=== PATIENT | male | born 1990 | race Caucasian/White ===

== ENCOUNTER 2019-12-08 11:34 | Emergency (ER) | payer MEDICAID ==
[~2019-12-08] VITALS: Ht 167.6 cm; Wt 61.8 kg
[2019-12-08 11:56] VITALS: BP 127/79
[2019-12-08 12:26] LABS: BASOPHILS % (AUTO) 0.3 % (0-1); EOSINOPHILS # (AUTO) 0.1 X10'3 (0-0.9); HEMATOCRIT 46.5 % (42.0-52.0); HEMOGLOBIN 16.1 g/dl (14.0-17.9); LYMPHOCYTES # (AUTO) 1.8 X10'3 (1.1-4.8); MEAN CORPUSCULAR HGB CONC 34.6 g/dL (33.0-36.5); MEAN CORPUSCULAR VOLUME 89.5 FL (78-98); MEAN PLATELET VOLUME 8.6 FL (7.4-10.4); MONOCYTES # (AUTO) 0.6 X10'3 (0-0.9); MONOCYTES % (AUTO) 6.7 % (2-12); PLATELET COUNT 321 X10'3 (140-440); RED BLOOD COUNT 5.19 X10'6 (4.70-6.10); RED CELL DISTRIBUTION WIDTH 13.1 % (11.5-14.5); WHITE BLOOD COUNT 8.4 X10'3 (4.5-11.0)
[2019-12-08 12:41] LABS: ALANINE AMINOTRANSFERASE 18 U/L (12-78); ALBUMIN 4.1 G/DL (3.4-5.0); ALBUMIN/GLOBULIN RATIO 1.1 (1.1-1.5); ALKALINE PHOSPHATASE 61 IU/L (46-116); ANION GAP 7 (8-16); ASPARTATE AMINO TRANSFERASE 12 U/L (10-37); BILIRUBIN,TOTAL 0.5 MG/DL (0.1-1.0); BLOOD UREA NITROGEN 5 MG/DL (7-18); BUN/CREATININE RATIO 5.1 (5.4-32.0); CALCIUM 9.7 MG/DL (8.5-10.1); CHLORIDE 107 MMOL/L (99-107); CREATININE 0.99 MG/DL (0.60-1.10); GLUCOSE 120 MG/DL (70-104); POTASSIUM 3.3 MMOL/L (3.5-5.1); SODIUM 144 MMOL/L (135-145); TOTAL CARBON DIOXIDE 30.1 MMOL/L (24-32); eGFR 89 ML/MIN
--- NOTE | 2019-12-08 14:19 | NUR ---
Not in lobby
--- NOTE | 2019-12-08 14:28 | NUR ---
Third call, not in lobby. Discussed with Dr Pro. Attempted to call patient, phone not in service.
== END 2019-12-08 15:06 | disposition left against medical advice (07) ==
LOC: ER 11:35
DX: R07.89 Other chest pain (principal); Z53.21 Procedure and treatment not carried out due to patient leaving prior to being seen by health care provider
CPT/HCPCS: 36415; 71045; 80053; 84484; 85025; 93005

== ENCOUNTER 2020-11-26 19:31 | Emergency (ER) | payer MEDICAID ==
[~2020-11-26] VITALS: Ht 167.6 cm; Wt 61.8 kg
[2020-11-26] MEDS ORDERED: ketorolac trometh inj. 60 MG/2 ML VIAL IM ONE (20:15)
[2020-11-26 20:36] LABS: BASOPHILS # (AUTO) 0.1 X10'3 (0-0.2); EOSINOPHILS # (AUTO) 0.3 X10'3 (0-0.9); EOSINOPHILS % (AUTO) 3.4 % (0-6); HEMATOCRIT 44.7 % (42.0-52.0); HEMOGLOBIN 15.3 g/dl (14.0-17.9); LYMPHOCYTES # (AUTO) 3.5 X10'3 (1.1-4.8); LYMPHOCYTES % (AUTO) 41.4 % (21-51); MEAN CORPUSCULAR HEMOGLOBIN 31.2 PG (27.0-31.0); MEAN CORPUSCULAR HGB CONC 34.3 g/dL (33.0-36.5); MEAN CORPUSCULAR VOLUME 90.7 FL (78-98); MEAN PLATELET VOLUME 8.6 FL (7.4-10.4); MONOCYTES # (AUTO) 0.9 X10'3 (0-0.9); MONOCYTES % (AUTO) 10.1 % (2-12); NEUTROPHILS # (AUTO) 3.8 X10'3 (1.8-7.7); NEUTROPHILS % (AUTO) 44.1 % (42-75); PLATELET COUNT 233 X10'3 (140-440); RED BLOOD COUNT 4.92 X10'6 (4.70-6.10); RED CELL DISTRIBUTION WIDTH 12.8 % (11.5-14.5); WHITE BLOOD COUNT 8.6 X10'3 (4.5-11.0)
[2020-11-26 20:49] LABS: CLARITY,URINE CLEAR (Clear); COLOR,URINE YELLOW (Yellow); GLUCOSE, URINE NEGATIVE (Neg); KETONES,URINE NEGATIVE (Neg); LEUKOCYTE ESTERASE ,URINE NEGATIVE (Neg); NITRITES, URINE NEGATIVE (Neg); OCCULT BLOOD,URINE NEGATIVE (Neg); PROTEIN,URINE NEGATIVE (Neg); UROBILINOGEN,URINE 0.2 E.U/dL (0.2-1.0)
[2020-11-26 20:53] LABS: ALANINE AMINOTRANSFERASE 28 U/L (12-78); ALBUMIN 4.1 G/DL (3.4-5.0); ALBUMIN/GLOBULIN RATIO 1.1 (1.1-1.5); ALKALINE PHOSPHATASE 66 IU/L (46-116); ANION GAP 8 (8-16); ASPARTATE AMINO TRANSFERASE 15 U/L (10-37); BILIRUBIN,TOTAL 0.3 MG/DL (0.1-1.0); BLOOD UREA NITROGEN 11 MG/DL (7-18); BUN/CREATININE RATIO 12.1 (5.4-32.0); CALCIUM 8.9 MG/DL (8.5-10.1); CHLORIDE 104 MMOL/L (99-107); CREATININE 0.91 MG/DL (0.60-1.10); GLUCOSE 88 MG/DL (70-104); LIPASE 102 U/L (73-393); POTASSIUM 3.8 MMOL/L (3.5-5.1); SODIUM 140 MMOL/L (135-145); TOTAL CARBON DIOXIDE 28.5 MMOL/L (24-32); TOTAL PROTEIN 7.7 G/DL (6.4-8.2); eGFR > 90 ML/MIN
[2020-11-26 20:54] LABS: UA COLLECTION TYPE CLN CATCH MIDSTREAM
[2020-11-26 21:05] LABS: URINE AMPHETAMINE SCREEN NEGATIVE (Neg); URINE BARBITUATE SCREEN NEGATIVE (Neg); URINE BENZODIAZEPINES SCREEN NEGATIVE (Neg); URINE CANNABINOID SCREEN POSITIVE (Neg); URINE COCAINE SCREEN NEGATIVE (Neg); URINE METHADONE SCREEN NEGATIVE (Neg); URINE OPIATE SCREEN NEGATIVE (Neg); URINE PHENCYCLIDINE SCREEN NEGATIVE (Neg)
[2020-11-26] MEDS ORDERED: NAPR-56 PO (21:06)
[2020-11-26] MEDS ORDERED: ORPH100T2 PO (21:06)
[2020-11-26 21:16] VITALS: BP 112/61
== END 2020-11-26 21:17 | disposition home or self-care (01) ==
LOC: ER 19:32
DX: M79.18 Myalgia, other site (principal); R25.2 Cramp and spasm; F12.90 Cannabis use, unspecified, uncomplicated; F17.200 Nicotine dependence, unspecified, uncomplicated; Z88.2 Allergy status to sulfonamides; Z79.899 Other long term (current) drug therapy
CPT/HCPCS: 36415; 80053; 80305; 81003; 83690; 85025; 93005; 96372; 99284; J1885

== ENCOUNTER 2020-11-27 18:19 | Emergency (ER) | payer MEDICAID ==
[~2020-11-27] VITALS: Ht 167.6 cm; Wt 61.4 kg
[~2020-11-27 18:19] MED LIST: NAPR-56 PO; ORPH100T2 PO
[2020-11-27] MEDS ORDERED: PENICILLIN G BENZATHINE 2,400,000 UNIT/4 ML SYRINGE IM ONE (19:20)
--- NOTE | 2020-11-27 19:53 | NUR ---
STABLE VS. PT GIVEN [place] SHOT.
[2020-11-27 19:54] VITALS: BP 129/84
== END 2020-11-27 19:55 | disposition home or self-care (01) ==
LOC: ER 18:20
DX: N50.89 Other specified disorders of the male genital organs (principal); Z20.2 Contact with and (suspected) exposure to infections with a predominantly sexual mode of transmission; Z86.19 Personal history of other infectious and parasitic diseases; F12.90 Cannabis use, unspecified, uncomplicated; Z88.2 Allergy status to sulfonamides; Z79.899 Other long term (current) drug therapy
CPT/HCPCS: 36415; 86592; 96372; 99283; J0561

== ENCOUNTER 2020-12-04 09:39 | Emergency (ER) | payer MEDICAID ==
[~2020-12-04] VITALS: Ht 167.6 cm; Wt 61.4 kg
[2020-12-04 09:43] VITALS: BP 141/93
--- NOTE | 2020-12-04 10:20 | NUR ---
[facility] SYMPTOMS FRIDAY HERE: RECEIVED PCN SHOT FOR SYPHYLIS FRIDAY BACK HERE FOR "ALLERGIC REACTION" = MILD ITCHING AND RASH NOW PRESSURE IN HEAD, RIGHT NECK STIFF DISCUSSED ORDER FOR MRI THAT HAS BEEN DENIED, ORDERED BY MARY ANN DEMARCO AT [facility] FOR PELVIS PAIN AND ENLARGED LYMPH NODES WHILE DISCUSSING WHAT BROUGHT THE PATIENT HERE, I TOLD HIM THAT I WAS GOING TO RETURN WITH A GOWN AND BLANKET SO THE DOCTOR CAN FULLY EXAMINED HIM AND SAID "iM JUST GONNA FUCKIN LEAVE, JUST LIKE BEFORE"
--- NOTE | 2020-12-04 10:24 | NUR ---
PATIENT WANTING TO LEAVE NOW, CONTACTED JOY PABON
--- NOTE | 2020-12-04 10:25 | NUR ---
JOY PABON AT BEDSIDE
--- NOTE | 2020-12-04 10:30 | NUR ---
WHEN JOY PABON WAS DISCUSSING MULTIPLE TREATMENT OPTIONS, PATIENT SAID: "DONT CALL ME YOUNG AND HEALTHY. IM JUST LEAVING. IM NOT HEALTHY." PATIENT DID NOT APPEAR TO HAVE ANY FOCAL NEURO DEFICITS, RR EVEN AND UNLABORED, SKIN WARM PINK AND DRY, AND AMULATED WNL.
--- NOTE | 2020-12-04 10:39 | NUR ---
PATIENT SIGNED AMA FORM
== END 2020-12-04 10:39 | disposition left against medical advice (07) ==
LOC: ER 09:40
DX: M43.6 Torticollis (principal); R51.9 Headache, unspecified; R10.2 Pelvic and perineal pain; F12.90 Cannabis use, unspecified, uncomplicated; Z88.2 Allergy status to sulfonamides; Z79.899 Other long term (current) drug therapy
CPT/HCPCS: 99281

== ENCOUNTER 2021-04-09 09:42 | Emergency (ER) | payer MEDICAID ==
[~2021-04-09 09:42] MED LIST changes: -NAPR-56 PO
== END 2021-04-09 10:15 | disposition left against medical advice (07) ==
LOC: ER 09:42
DX: H57.10 Ocular pain, unspecified eye (principal); Z53.21 Procedure and treatment not carried out due to patient leaving prior to being seen by health care provider
CPT/HCPCS: 99283

== ENCOUNTER 2021-05-14 18:39 | Emergency (ER) | payer MEDICAID | END 2021-05-14 19:44 | disposition left against medical advice (07) | LOC: ER 18:41 | DX: Z53.21 Procedure and treatment not carried out due to patient leaving prior to being seen by health care provider (principal) ==

== ENCOUNTER 2021-09-18 11:41 | Emergency (ER) | payer MEDICAID ==
[~2021-09-18] VITALS: Ht 167.6 cm; Wt 61.4 kg
[2021-09-18 12:08] VITALS: BP 135/77
--- NOTE | 2021-09-18 15:37 | NUR ---
knee brace placed and cut to R eye cleaned
== END 2021-09-18 16:11 | disposition home or self-care (01) ==
LOC: ER 11:41
DX: M23.91 Unspecified internal derangement of right knee (principal); M25.561 Pain in right knee; F17.200 Nicotine dependence, unspecified, uncomplicated; F12.90 Cannabis use, unspecified, uncomplicated; Z88.2 Allergy status to sulfonamides; Z79.899 Other long term (current) drug therapy
CPT/HCPCS: 29505; 73564; 99284

== ENCOUNTER 2021-09-23 13:59 | Emergency (ER) | payer MEDICAID ==
[~2021-09-23] VITALS: Ht 167.6 cm; Wt 65.9 kg
[2021-09-23 14:24] VITALS: BP 136/80
[2021-09-23] MEDS ORDERED: apixaban 5mg tablet PO SCH (17:55)
[2021-09-23] MEDS ORDERED: APIX5TAB3 PO (17:56)
== END 2021-09-23 18:36 | disposition home or self-care (01) ==
LOC: ER 13:59
DX: I82.402 Acute embolism and thrombosis of unspecified deep veins of left lower extremity (principal)
CPT/HCPCS: 93926; 93971; 99284; 99285

== ENCOUNTER 2021-09-24 23:55 | Emergency (ER) | payer MEDICAID ==
[~2021-09-24] VITALS: Ht 167.6 cm; Wt 65.9 kg
[~2021-09-24 23:55] MED LIST changes: +APIX5TAB3 PO
[2021-09-25] MEDS ORDERED: HYDROcodone/acetaminophen 5mg/325mg tablet PO ONE (01:00)
[2021-09-25 01:21] LABS: BASOPHILS # (AUTO) 0.1 X10'3 (0-0.2); BASOPHILS % (AUTO) 1.1 % (0-1); EOSINOPHILS # (AUTO) 0.2 X10'3 (0-0.9); EOSINOPHILS % (AUTO) 3.7 % (0-6); HEMATOCRIT 39.9 % (42.0-52.0); HEMOGLOBIN 13.9 g/dl (14.0-17.9); LYMPHOCYTES # (AUTO) 3.4 X10'3 (1.1-4.8); LYMPHOCYTES % (AUTO) 51.1 % (21-51); MEAN CORPUSCULAR HEMOGLOBIN 31.4 PG (27.0-31.0); MEAN CORPUSCULAR HGB CONC 34.9 g/dL (33.0-36.5); MEAN PLATELET VOLUME 8.5 FL (7.4-10.4); MONOCYTES # (AUTO) 0.8 X10'3 (0-0.9); MONOCYTES % (AUTO) 11.3 % (2-12); NEUTROPHILS # (AUTO) 2.2 X10'3 (1.8-7.7); NEUTROPHILS % (AUTO) 32.8 % (42-75); PLATELET COUNT 257 X10'3 (140-440); RED BLOOD COUNT 4.43 X10'6 (4.70-6.10); RED CELL DISTRIBUTION WIDTH 13.1 % (11.5-14.5); WHITE BLOOD COUNT 6.7 X10'3 (4.5-11.0)
[2021-09-25 01:35] LABS: ALANINE AMINOTRANSFERASE 22 U/L (12-78); ALBUMIN 3.5 G/DL (3.4-5.0); ALBUMIN/GLOBULIN RATIO 1.1 (1.1-1.5); ALKALINE PHOSPHATASE 52 IU/L (46-116); ANION GAP 7 (8-16); ASPARTATE AMINO TRANSFERASE 12 U/L (10-37); BILIRUBIN,TOTAL 0.4 MG/DL (0.1-1.0); BLOOD UREA NITROGEN 11 MG/DL (7-18); CALCIUM 8.5 MG/DL (8.5-10.1); CHLORIDE 105 MMOL/L (99-107); CREATININE 0.92 MG/DL (0.60-1.10); GLUCOSE 116 MG/DL (70-104); POTASSIUM 3.3 MMOL/L (3.5-5.1); SODIUM 143 MMOL/L (135-145); TOTAL CARBON DIOXIDE 30.7 MMOL/L (24-32); TOTAL PROTEIN 6.8 G/DL (6.4-8.2); eGFR > 90 ML/MIN
[2021-09-25 01:39] LABS: ETHANOL < 0.010 GM/DL (0.0-0.010)
[2021-09-25 02:32] LABS: URINE AMPHETAMINE SCREEN POSITIVE (Neg); URINE BARBITUATE SCREEN NEGATIVE (Neg); URINE BENZODIAZEPINES SCREEN NEGATIVE (Neg); URINE CANNABINOID SCREEN POSITIVE (Neg); URINE COCAINE SCREEN NEGATIVE (Neg); URINE METHADONE SCREEN NEGATIVE (Neg); URINE OPIATE SCREEN POSITIVE (Neg); URINE PHENCYCLIDINE SCREEN NEGATIVE (Neg)
[2021-09-25 02:47] LABS: TOTAL CELLS COUNTED 100
[2021-09-25 02:48] LABS: PLATELET ESTIMATE NORMAL
[2021-09-25 02:50] LABS: LARGE PLATELETS FEW; TEAR DROP CELLS FEW
[2021-09-25 03:19] VITALS: BP 115/72
== END 2021-09-25 03:21 | disposition home or self-care (01) ==
LOC: ER 23:56
DX: R07.89 Other chest pain (principal); R11.0 Nausea; I82.401 Acute embolism and thrombosis of unspecified deep veins of right lower extremity; S89.91XD Unspecified injury of right lower leg, subsequent encounter; Z79.899 Other long term (current) drug therapy; Z87.74 Personal history of (corrected) congenital malformations of heart and circulatory system; Z88.2 Allergy status to sulfonamides; X58.XXXD Exposure to other specified factors, subsequent encounter
CPT/HCPCS: 36415; 80053; 80305; 80320; 84484; 85007; 85025; 93005; 99284

== ENCOUNTER 2021-09-25 19:53 | Emergency (ER) | payer MEDICAID ==
[~2021-09-25] VITALS: Ht 167.6 cm; Wt 62.0 kg
[2021-09-25 20:28] LABS: BASOPHILS # (AUTO) 0.1 X10'3 (0-0.2); BASOPHILS % (AUTO) 1.4 % (0-1); EOSINOPHILS # (AUTO) 0.3 X10'3 (0-0.9); EOSINOPHILS % (AUTO) 3.3 % (0-6); HEMATOCRIT 43.8 % (42.0-52.0); HEMOGLOBIN 15.4 g/dl (14.0-17.9); LYMPHOCYTES # (AUTO) 4.1 X10'3 (1.1-4.8); LYMPHOCYTES % (AUTO) 45.9 % (21-51); MEAN CORPUSCULAR HEMOGLOBIN 31.7 PG (27.0-31.0); MEAN CORPUSCULAR HGB CONC 35.2 g/dL (33.0-36.5); MEAN CORPUSCULAR VOLUME 90.1 FL (78-98); MEAN PLATELET VOLUME 8.6 FL (7.4-10.4); MONOCYTES # (AUTO) 0.7 X10'3 (0-0.9); NEUTROPHILS # (AUTO) 3.7 X10'3 (1.8-7.7); NEUTROPHILS % (AUTO) 41.4 % (42-75); PLATELET COUNT 279 X10'3 (140-440); RED BLOOD COUNT 4.86 X10'6 (4.70-6.10); RED CELL DISTRIBUTION WIDTH 12.9 % (11.5-14.5)
[2021-09-25 20:39] LABS: ALANINE AMINOTRANSFERASE 22 U/L (12-78); ALBUMIN 4.2 G/DL (3.4-5.0); ALBUMIN/GLOBULIN RATIO 1.2 (1.1-1.5); ALKALINE PHOSPHATASE 58 IU/L (46-116); ANION GAP 14 (8-16); ASPARTATE AMINO TRANSFERASE 22 U/L (10-37); BILIRUBIN,TOTAL 0.4 MG/DL (0.1-1.0); BLOOD UREA NITROGEN 8 MG/DL (7-18); BUN/CREATININE RATIO 7.7 (5.4-32.0); CALCIUM 9.2 MG/DL (8.5-10.1); CHLORIDE 103 MMOL/L (99-107); CREATININE 1.04 MG/DL (0.60-1.10); GLUCOSE 99 MG/DL (70-104); POTASSIUM 3.5 MMOL/L (3.5-5.1); SODIUM 142 MMOL/L (135-145); TOTAL CARBON DIOXIDE 25.2 MMOL/L (24-32); TOTAL PROTEIN 7.8 G/DL (6.4-8.2); eGFR 83 ML/MIN
[2021-09-25] MEDS ORDERED: tranexamic acid 1gm/0.7% sal. 100 ML IV ONE (21:10)
[2021-09-25] MEDS ORDERED: iohexol 350MG/ML 100ml bottle IV ONE (21:35)
--- NOTE | 2021-09-25 21:40 | NUR ---
BILATERAL PIV'S PLACED IN ONE ATTEMPT EACH. TXA INFUSION BEGUN. ADVISED MEAT BLENDER TO NOT STOP INFUSIONO AND THAT THE 18G RFA IS FOR CONTRAST STUDY. PATIENT LEFT ROOM TO CT 6498
[2021-09-25] MEDS ORDERED: human prothrombin complex-PCC 500 UNIT/20 ML VIAL IV ONE (22:05)
--- NOTE | 2021-09-25 22:45 | NUR ---
patient alert and oriented LUA - denies pain - states "I just feel confused" and also reports ongoing left sided mild numbness. TXA infusing. awaiting kcentra from pharmacy.
--- NOTE | 2021-09-25 23:15 | NUR ---
CONTACTED THE DOCTOR OF PHARMACY TO HAVE HER CALCULATE THE DRIP RATE FOR KCENTRA SINCE IT IS NOT IN THE PUMP LIBRARY. PER RPh RUN 120ML AT 240HOUR.
--- NOTE | 2021-09-25 23:24 | NUR ---
PATIENT GAVE THSI RN VERBAL AUTHORIZATION TO SPEAK TO MOTHER REGARDING THE RATIONALE FOR WORKING ON TRANSFERRING PATIENT TO A HOSPITAL WITH A HIGHER LEVEL OF CARE AND REQUIRED NEURO INTERVENTIONLIST. MOTHER VERBALIZES UNDERSTANDING AND THANKS THIS RN.
--- NOTE | 2021-09-25 23:24 | NUR ---
Edu carrilloharvey in ED - 09/25/21 at 2325 by [email or web address] PATIENT GAVE KARINA PLUNKETT VERBAL AUTHORIZATION TO SPEAK TO MOTHER REGARDING THE RATIONALE FOR WORKING ON TRANSFERRING PATIENT TO A HOSPITAL WITH A HIGHER LEVEL OF CARE AND REQUIRED NEURO INTERVENTIONLIST. MOTHER VERBALIZES UNDERSTANDING AND THANKS THIS RN.
[2021-09-25] MEDS ORDERED: niCARDipine-NS 40mg/200ml IVPB 200 ML IV PRN (23:45)
--- NOTE | 2021-09-26 00:42 | NUR ---
WEATHER INCONGRUENT WITH HELICOPTER FLIGHT. AWAITING FIX WING. PATIENT NOTIFIED. PATIENT HAS EQUAL MILK HAULER AND DORSI PLANTAR FLEXION. PATIENT REPORT SAME SYMPTOMS AND NOW REPORTS INTERMITTENT BILATERAL EYE PRESSURE. WILL CTM
--- NOTE | 2021-09-26 01:27 | NUR ---
PATIENT REPORTS INCREASING HEAD PRESSURE - 4/10 NOW BOTH SIDES OF HIS HEAD - ALSO COMPLAINS OF INCREASING PRESSURE BILATERAL EYES. REPORT TO MD - ORDER NOTED FOR REPEAT CT. PATIENT ADVISED - EQUAL ELECTRICAL POWER STATION TECHNICIAN AND DORSI PLANTAR FLEXION. AOX4 . TRANSPORT SCHEDULED TO ARRIVE AT 0330. WILL CTM.
[2021-09-26 04:06] VITALS: BP 105/72
--- NOTE | 2021-09-26 04:32 | NUR ---
report to [facility] lifeflight nurse at bedside. patient left pwd mullins aox4 VSS
== END 2021-09-26 04:38 | disposition short-term general hospital (02) ==
LOC: ER 19:54
DX: I62.9 Nontraumatic intracranial hemorrhage, unspecified (principal); Z20.822 Contact with and (suspected) exposure to COVID-19; M23.91 Unspecified internal derangement of right knee; I82.401 Acute embolism and thrombosis of unspecified deep veins of right lower extremity; I10 Essential (primary) hypertension; F12.90 Cannabis use, unspecified, uncomplicated; Z79.01 Long term (current) use of anticoagulants; Z88.2 Allergy status to sulfonamides; Z79.899 Other long term (current) drug therapy; Z86.718 Personal history of other venous thrombosis and embolism
CPT/HCPCS: 36415; 70450; 70496; 70498; 71045; 80053; 83880; 84484; 85025; 85610; 87635; 93005; 96365; 96367; 99291; C9803; J3490; J7168; Q9967; 99285

== ENCOUNTER 2021-09-28 00:12 | Emergency (ER) | payer MEDICAID ==
[~2021-09-28] VITALS: Ht 167.6 cm; Wt 63.6 kg
[2021-09-28 01:59] LABS: ALBUMIN 3.9 G/DL (3.4-5.0); ANION GAP 8 (8-16); BLOOD UREA NITROGEN 18 MG/DL (7-18); BUN/CREATININE RATIO 17.5 (5.4-32.0); CHLORIDE 104 MMOL/L (99-107); CREATININE 1.03 MG/DL (0.60-1.10); GLUCOSE 112 MG/DL (70-104); POTASSIUM 4.2 MMOL/L (3.5-5.1); SODIUM 142 MMOL/L (135-145); TOTAL CARBON DIOXIDE 29.9 MMOL/L (24-32); eGFR 84 ML/MIN
[2021-09-28 02:00] LABS: BASOPHILS # (AUTO) 0.1 X10'3 (0-0.2); BASOPHILS % (AUTO) 0.9 % (0-1); EOSINOPHILS # (AUTO) 0.2 X10'3 (0-0.9); EOSINOPHILS % (AUTO) 2.9 % (0-6); HEMOGLOBIN 15.1 g/dl (14.0-17.9); LYMPHOCYTES # (AUTO) 3.7 X10'3 (1.1-4.8); LYMPHOCYTES % (AUTO) 43.9 % (21-51); MEAN CORPUSCULAR HEMOGLOBIN 31.7 PG (27.0-31.0); MEAN CORPUSCULAR HGB CONC 35.2 g/dL (33.0-36.5); MEAN CORPUSCULAR VOLUME 90.1 FL (78-98); MEAN PLATELET VOLUME 8.8 FL (7.4-10.4); MONOCYTES # (AUTO) 0.8 X10'3 (0-0.9); MONOCYTES % (AUTO) 9.2 % (2-12); NEUTROPHILS # (AUTO) 3.6 X10'3 (1.8-7.7); NEUTROPHILS % (AUTO) 43.1 % (42-75); PLATELET COUNT 281 X10'3 (140-440); RED BLOOD COUNT 4.78 X10'6 (4.70-6.10); RED CELL DISTRIBUTION WIDTH 13.1 % (11.5-14.5); WHITE BLOOD COUNT 8.4 X10'3 (4.5-11.0)
--- NOTE | 2021-09-28 02:13 | NUR ---
PT HAS KNEE IMOBILIZER ON LEFT LEG ON ARRIVAL
[2021-09-28 02:38] LABS: PARTIAL THROMBOPLASTIN TIME 27 SECONDS (22-32)
[2021-09-28] MEDS ORDERED: levetiracetam inj 1,000 MG in normal saline 100ml IV soln 100 ML IV SCH (03:49)
[2021-09-28] MEDS ORDERED: levetiracetam inj 1,000 MG in normal saline 100ml IV soln 90 ML IV SCH (03:49)
--- NOTE | 2021-09-28 06:35 | NUR ---
Patient resting quietly, appears to be sleeping; no apparent distress.
--- NOTE | 2021-09-28 07:26 | NUR ---
Patient's mother, Hanna, given update via telephone.
--- NOTE | 2021-09-28 08:34 | NUR ---
Patient given urinal at bedside.
--- NOTE | 2021-09-28 09:17 | NUR ---
Patient to MRI with business technology teacher.
[2021-09-28 11:05] VITALS: BP 121/80
== END 2021-09-28 11:07 | disposition home or self-care (01) ==
LOC: ER 00:13
DX: D18.09 Hemangioma of other sites (principal); R51.9 Headache, unspecified; R53.1 Weakness; R20.0 Anesthesia of skin; F12.90 Cannabis use, unspecified, uncomplicated; Z88.0 Allergy status to penicillin; Z88.2 Allergy status to sulfonamides; Z79.899 Other long term (current) drug therapy
CPT/HCPCS: 36415; 70450; 70551; 80048; 85025; 85610; 85730; 96365; 99285; J1953; J3490

== ENCOUNTER 2021-11-04 18:09 | Emergency (ER) | payer MEDICAID ==
[~2021-11-04] VITALS: Ht 165.1 cm; Wt 65.9 kg
[2021-11-04 18:11] VITALS: BP 141/89
[2021-11-04] MEDS ORDERED: APIX5TAB3 PO (18:28)
[2021-11-04] MEDS ORDERED: apixaban 5mg tablet PO ONE (18:30)
== END 2021-11-04 19:18 | disposition home or self-care (01) ==
LOC: ER 18:10
DX: I82.501 Chronic embolism and thrombosis of unspecified deep veins of right lower extremity (principal); F17.200 Nicotine dependence, unspecified, uncomplicated; F12.90 Cannabis use, unspecified, uncomplicated; Z86.73 Personal history of transient ischemic attack (TIA), and cerebral infarction without residual deficits; Z88.0 Allergy status to penicillin; Z88.2 Allergy status to sulfonamides; Z79.899 Other long term (current) drug therapy
CPT/HCPCS: 99283

== ENCOUNTER 2023-10-18 07:02 | Emergency (ER) | payer MEDICAID ==
[~2023-10-18] VITALS: Ht 167.6 cm; Wt 65.0 kg
[~2023-10-18 07:02] MED LIST changes: -ORPH100T2 PO; +ORPH100T4 PO
[2023-10-18] MEDS ORDERED: HYDROmorphone 1 mg/ml syringe IV ONE (07:15)
[2023-10-18] MEDS ORDERED: ondansetron/PF 4mg/2ml inj IV ONE (07:15)
[2023-10-18 07:25] VITALS: TEMP 98.7
[2023-10-18 08:00] LABS: BASOPHILS # (AUTO) 0.1 X10'3 (0-0.2); BASOPHILS % (AUTO) 0.7 % (0-1); EOSINOPHILS # (AUTO) 0.1 X10'3 (0-0.9); EOSINOPHILS % (AUTO) 0.8 % (0-6); HEMATOCRIT 45.1 % (42.0-52.0); HEMOGLOBIN 15.4 g/dl (14.0-17.9); LYMPHOCYTES # (AUTO) 2.3 X10'3 (1.1-4.8); LYMPHOCYTES % (AUTO) 21.5 % (21-51); MEAN CORPUSCULAR HEMOGLOBIN 30.7 PG (27.0-31.0); MEAN CORPUSCULAR HGB CONC 34.3 g/dL (33.0-36.5); MEAN CORPUSCULAR VOLUME 89.7 FL (78-98); MONOCYTES # (AUTO) 1.2 X10'3 (0-0.9); MONOCYTES % (AUTO) 11.1 % (2-12); NEUTROPHILS # (AUTO) 6.9 X10'3 (1.8-7.7); NEUTROPHILS % (AUTO) 65.9 % (42-75); PLATELET COUNT 301 X10'3 (140-440); RED BLOOD COUNT 5.02 X10'6 (4.70-6.10); RED CELL DISTRIBUTION WIDTH 14.4 % (11.5-14.5); WHITE BLOOD COUNT 10.5 X10'3 (4.5-11.0)
[2023-10-18 08:13] LABS: ALANINE AMINOTRANSFERASE 21 U/L (12-78); ALBUMIN 3.9 G/DL (3.4-5.0); ALKALINE PHOSPHATASE 92 IU/L (46-116); ANION GAP 8 (8-16); ASPARTATE AMINO TRANSFERASE 33 U/L (10-37); BILIRUBIN,TOTAL 0.5 MG/DL (0.1-1.0); BLOOD UREA NITROGEN 15 MG/DL (7-18); CALCIUM 9.1 MG/DL (8.5-10.1); CHLORIDE 104 MMOL/L (99-107); CREATININE 0.88 MG/DL (0.60-1.10); GLUCOSE 100 MG/DL (70-104); POTASSIUM 3.5 MMOL/L (3.5-5.1); SODIUM 142 MMOL/L (135-145); TOTAL PROTEIN 7.9 G/DL (6.4-8.2); eCRCL 108 ML/MIN; eGFR > 90 ML/MIN
[2023-10-18] MEDS ORDERED: HYDROcodone/acetaminophen 10/325mg tab PO ONE (08:40)
[2023-10-18] MEDS ORDERED: ondansetron 4mg rapidly disintigrating tab PO ONE (08:40)
[2023-10-18 09:17] VITALS: BP 118/87; PULSE 95; RESP 15; O2SAT 99
[2023-10-18] MEDS ORDERED: ketorolac tromethamine 15mg/ml inj. IV ONE (09:55)
[2023-10-18] MEDS ORDERED: magnesium 2GM in 50ml NS 50 ML IV ONE (09:55)
[2023-10-18] MEDS ORDERED: metoclopramide 5 mg/ml inj IV ONE (09:55)
[2023-10-18] MEDS ORDERED: diphenhydrAMINE 50 mg/ml inj IV ONE (09:55)
== END 2023-10-18 10:40 | disposition left against medical advice (07) ==
LOC: ER 07:03
DX: R51.9 Headache, unspecified (principal); Z20.822 Contact with and (suspected) exposure to COVID-19; Z88.0 Allergy status to penicillin; Z79.899 Other long term (current) drug therapy
CPT/HCPCS: 36415; 70450; 80053; 85025; 87811; 99284

== ENCOUNTER 2023-11-12 05:50 | Emergency (ER) | payer MEDICAID ==
[~2023-11-12] VITALS: Ht 167.6 cm; Wt 65.0 kg
[2023-11-12 05:52] VITALS: BP 148/98; PULSE 112; TEMP 98.5; O2SAT 99
[2023-11-12 06:31] VITALS: RESP 19
[2023-11-12] MEDS ORDERED: DOXY100C43 PO (06:39)
== END 2023-11-12 06:49 | disposition home or self-care (01) ==
LOC: ER 05:51
DX: L73.9 Follicular disorder, unspecified (principal); F17.210 Nicotine dependence, cigarettes, uncomplicated; F12.90 Cannabis use, unspecified, uncomplicated; Z88.0 Allergy status to penicillin; Z86.73 Personal history of transient ischemic attack (TIA), and cerebral infarction without residual deficits; Z88.2 Allergy status to sulfonamides; Z79.899 Other long term (current) drug therapy
CPT/HCPCS: 99283

== ENCOUNTER 2023-11-13 07:28 | Emergency (ER) | payer MEDICAID ==
[~2023-11-13] VITALS: Ht 167.6 cm; Wt 61.6 kg
[~2023-11-13 07:28] MED LIST changes: +DOXY100C43 PO
[2023-11-13 07:34] VITALS: BP 132/92; PULSE 112; RESP 16; TEMP 97.8; O2SAT 98
== END 2023-11-13 11:37 | disposition left against medical advice (07) ==
LOC: ER 07:29
DX: R21 Rash and other nonspecific skin eruption (principal); R07.0 Pain in throat; Z53.21 Procedure and treatment not carried out due to patient leaving prior to being seen by health care provider
CPT/HCPCS: 99281

== ENCOUNTER 2024-01-17 02:38 | Emergency (ER) | payer MEDICAID ==
[~2024-01-17] VITALS: Ht 167.6 cm; Wt 63.6 kg
[~2024-01-17 02:38] MED LIST changes: -DOXY100C43 PO
[2024-01-17] MEDS: normal saline 1000ML IV soln IVB ONE (03:21)
[2024-01-17 03:45] LABS: BASOPHILS # (AUTO) 0.1 X10'3 (0-0.2); BASOPHILS % (AUTO) 0.4 % (0-1); EOSINOPHILS # (AUTO) 0.1 X10'3 (0-0.9); EOSINOPHILS % (AUTO) 0.6 % (0-6); HEMATOCRIT 39.8 % (42.0-52.0); HEMOGLOBIN 13.4 g/dl (14.0-17.9); LYMPHOCYTES # (AUTO) 1.8 X10'3 (1.1-4.8); LYMPHOCYTES % (AUTO) 13.5 % (21-51); MEAN CORPUSCULAR HEMOGLOBIN 29.8 PG (27.0-31.0); MEAN CORPUSCULAR HGB CONC 33.8 g/dL (33.0-36.5); MEAN CORPUSCULAR VOLUME 88.1 FL (78-98); MONOCYTES # (AUTO) 0.7 X10'3 (0-0.9); MONOCYTES % (AUTO) 5.7 % (2-12); NEUTROPHILS # (AUTO) 10.4 X10'3 (1.8-7.7); NEUTROPHILS % (AUTO) 79.8 % (42-75); PLATELET COUNT 366 X10'3 (140-440); RED BLOOD COUNT 4.51 X10'6 (4.70-6.10); WHITE BLOOD COUNT 13.1 X10'3 (4.5-11.0)
[2024-01-17 03:54] LABS: ETHANOL < 10 MG/DL (<10); LIPASE 21 U/L (16-77)
[2024-01-17 05:51] LABS: BILIRUBIN,URINE NEGATIVE (Neg); CLARITY,URINE CLEAR (Clear); COLOR,URINE YELLOW (Yellow); GLUCOSE, URINE NEGATIVE (Neg); KETONES,URINE NEGATIVE (Neg); LEUKOCYTE ESTERASE ,URINE NEGATIVE (Neg); NITRITES, URINE NEGATIVE (Neg); OCCULT BLOOD,URINE NEGATIVE (Neg); PROTEIN,URINE NEGATIVE (Neg); UROBILINOGEN,URINE 0.2 E.U/dL (0.2-1.0)
[2024-01-17 05:56] LABS: UA COLLECTION TYPE CLN CATCH MIDSTREAM
[2024-01-17 06:09] VITALS: BP 128/68; PULSE 94; RESP 18; TEMP 98.6; O2SAT 100
[2024-01-17 06:35] LABS: URINE AMPHETAMINE SCREEN POSITIVE (Neg); URINE BARBITUATE SCREEN NEGATIVE (Neg); URINE BENZODIAZEPINES SCREEN NEGATIVE (Neg); URINE CANNABINOID SCREEN POSITIVE (Neg); URINE COCAINE SCREEN NEGATIVE (Neg); URINE METHADONE SCREEN NEGATIVE (Neg); URINE OPIATE SCREEN NEGATIVE (Neg); URINE PHENCYCLIDINE SCREEN NEGATIVE (Neg)
== END 2024-01-17 06:11 | disposition home or self-care (01) ==
LOC: ER 02:39
DX: R10.31 Right lower quadrant pain (principal); F12.90 Cannabis use, unspecified, uncomplicated; Z86.73 Personal history of transient ischemic attack (TIA), and cerebral infarction without residual deficits; Z86.718 Personal history of other venous thrombosis and embolism; Z87.81 Personal history of (healed) traumatic fracture; Z88.0 Allergy status to penicillin; Z88.2 Allergy status to sulfonamides; Z79.899 Other long term (current) drug therapy
CPT/HCPCS: 36415; 74176; 80305; 80320; 81003; 83690; 84484; 85025; 96360; 99284; J7030

== ENCOUNTER 2024-01-22 02:35 | Emergency (ER) | payer MEDICAID ==
[~2024-01-22] VITALS: Ht 167.6 cm; Wt 68.0 kg
[2024-01-22 04:38] VITALS: PULSE 96
[2024-01-22 04:59] VITALS: BP 112/55; RESP 16; TEMP 97.8; O2SAT 96
== END 2024-01-22 05:02 | disposition home or self-care (01) ==
LOC: ER 02:36
DX: F15.90 Other stimulant use, unspecified, uncomplicated (principal); R07.89 Other chest pain; F12.90 Cannabis use, unspecified, uncomplicated; Z88.0 Allergy status to penicillin; Z88.2 Allergy status to sulfonamides; Z79.899 Other long term (current) drug therapy
CPT/HCPCS: 93005; 99283

== ENCOUNTER 2024-02-04 08:52 | Emergency (ER) | payer MEDICAID ==
[~2024-02-04] VITALS: Ht 167.6 cm; Wt 68.2 kg
[2024-02-04 08:57] VITALS: PULSE 90; RESP 18; TEMP 97.2; O2SAT 98
[2024-02-04 10:23] VITALS: BP 144/88
[2024-02-04] MEDS ORDERED: NAPR-56 PO (10:46)
== END 2024-02-04 11:14 | disposition home or self-care (01) ==
LOC: ER 08:53
DX: T14.8XXA Other injury of unspecified body region, initial encounter (principal); F12.90 Cannabis use, unspecified, uncomplicated; F15.90 Other stimulant use, unspecified, uncomplicated; Z88.0 Allergy status to penicillin; Z88.2 Allergy status to sulfonamides; Z79.899 Other long term (current) drug therapy; Y08.89XA Assault by other specified means, initial encounter; Y93.89 Activity, other specified; Y92.89 Other specified places as the place of occurrence of the external cause; Y99.8 Other external cause status
CPT/HCPCS: 99282

== ENCOUNTER 2024-02-21 00:58 | Emergency (ER) | payer MEDICAID ==
[~2024-02-21] VITALS: Ht 167.6 cm; Wt 65.9 kg
[~2024-02-21 00:58] MED LIST changes: +NAPR-56 PO
[2024-02-21] MEDS: normal saline 1000ML IV soln IVB ONE (05:32)
[2024-02-21 05:57] LABS: ALBUMIN 3.4 G/DL (3.4-5.0); ANION GAP 3 (8-16); BLOOD UREA NITROGEN 7 MG/DL (7-18); BUN/CREATININE RATIO 10.1 (10.0-20.0); CALCIUM 8.5 MG/DL (8.5-10.1); CHLORIDE 103 MMOL/L (99-107); CREATININE 0.69 MG/DL (0.60-1.10); GLUCOSE 92 MG/DL (70-104); POTASSIUM 4.1 MMOL/L (3.5-5.1); SODIUM 138 MMOL/L (135-145); TOTAL CARBON DIOXIDE 32.3 MMOL/L (24-32); eCRCL 136 ML/MIN; eGFR > 90 ML/MIN
[2024-02-21 05:58] LABS: BASOPHILS # (AUTO) 0.1 X10'3 (0-0.2); EOSINOPHILS # (AUTO) 0.3 X10'3 (0-0.9); HEMOGLOBIN 12.9 g/dl (14.0-17.9); LYMPHOCYTES # (AUTO) 2.2 X10'3 (1.1-4.8); LYMPHOCYTES % (AUTO) 25.6 % (21-51); MEAN CORPUSCULAR HEMOGLOBIN 29.7 PG (27.0-31.0); MEAN CORPUSCULAR VOLUME 89.9 FL (78-98); MEAN PLATELET VOLUME 7.7 FL (7.4-10.4); MONOCYTES # (AUTO) 0.9 X10'3 (0-0.9); MONOCYTES % (AUTO) 10.5 % (2-12); NEUTROPHILS # (AUTO) 5.1 X10'3 (1.8-7.7); NEUTROPHILS % (AUTO) 59.9 % (42-75); PLATELET COUNT 392 X10'3 (140-440); RED BLOOD COUNT 4.34 X10'6 (4.70-6.10); WHITE BLOOD COUNT 8.4 X10'3 (4.5-11.0)
[2024-02-21 07:05] VITALS: BP 111/84; PULSE 85; RESP 14; TEMP 97.9; O2SAT 100
== END 2024-02-21 07:08 | disposition home or self-care (01) ==
LOC: ER 00:59
DX: S06.0XAA Concussion with loss of consciousness status unknown, initial encounter (principal); F12.90 Cannabis use, unspecified, uncomplicated; F15.90 Other stimulant use, unspecified, uncomplicated; Z88.0 Allergy status to penicillin; Z88.2 Allergy status to sulfonamides; Z79.899 Other long term (current) drug therapy; Y08.89XA Assault by other specified means, initial encounter; Y93.89 Activity, other specified; Y92.89 Other specified places as the place of occurrence of the external cause; Y99.8 Other external cause status
CPT/HCPCS: 36415; 70450; 71045; 80048; 85025; 93005; 96360; 99285; J7030

== ENCOUNTER 2024-02-23 11:14 | Emergency (ER) | payer MEDICAID ==
[~2024-02-23] VITALS: Ht 167.6 cm; Wt 54.0 kg
[2024-02-23] MEDS: normal saline 1000ML IV soln IVB ONE (13:03)
[2024-02-23] MEDS ORDERED: NO HOME MEDS (14:34)
[2024-02-23 14:43] LABS: BASOPHILS # (AUTO) 0.1 X10'3 (0-0.2); BASOPHILS % (AUTO) 0.9 % (0-1); EOSINOPHILS # (AUTO) 0.3 X10'3 (0-0.9); EOSINOPHILS % (AUTO) 2.4 % (0-6); HEMATOCRIT 34.9 % (42.0-52.0); HEMOGLOBIN 11.7 g/dl (14.0-17.9); LYMPHOCYTES # (AUTO) 1.8 X10'3 (1.1-4.8); LYMPHOCYTES % (AUTO) 14.4 % (21-51); MEAN CORPUSCULAR HGB CONC 33.5 g/dL (33.0-36.5); MEAN CORPUSCULAR VOLUME 89.4 FL (78-98); MEAN PLATELET VOLUME 7.5 FL (7.4-10.4); MONOCYTES # (AUTO) 0.8 X10'3 (0-0.9); MONOCYTES % (AUTO) 6.5 % (2-12); NEUTROPHILS # (AUTO) 9.6 X10'3 (1.8-7.7); NEUTROPHILS % (AUTO) 75.8 % (42-75); PLATELET COUNT 397 X10'3 (140-440); RED BLOOD COUNT 3.91 X10'6 (4.70-6.10); WHITE BLOOD COUNT 12.7 X10'3 (4.5-11.0)
[2024-02-23] MEDS: ringers solution, lacted 1,000 ML IV ONE (14:59)
[2024-02-23 15:05] LABS: ANION GAP 3 (8-16); BLOOD UREA NITROGEN 8 MG/DL (7-18); BUN/CREATININE RATIO 10.8 (10.0-20.0); CALCIUM 8.4 MG/DL (8.5-10.1); CHLORIDE 105 MMOL/L (99-107); CREATININE 0.74 MG/DL (0.60-1.10); ETHANOL < 10 MG/DL (<10); GLUCOSE 87 MG/DL (70-104); POTASSIUM 3.6 MMOL/L (3.5-5.1); SODIUM 140 MMOL/L (135-145); TOTAL CARBON DIOXIDE 31.9 MMOL/L (24-32); eCRCL 107 ML/MIN; eGFR > 90 ML/MIN
[2024-02-23 15:05] LABS: URINE AMPHETAMINE SCREEN POSITIVE (Neg); URINE BARBITUATE SCREEN NEGATIVE (Neg); URINE BENZODIAZEPINES SCREEN NEGATIVE (Neg); URINE CANNABINOID SCREEN POSITIVE (Neg); URINE COCAINE SCREEN NEGATIVE (Neg); URINE METHADONE SCREEN NEGATIVE (Neg); URINE OPIATE SCREEN NEGATIVE (Neg); URINE PHENCYCLIDINE SCREEN NEGATIVE (Neg)
[2024-02-23 16:49] VITALS: BP 132/89; PULSE 68; RESP 16; TEMP 98.6; O2SAT 100
== END 2024-02-23 16:50 | disposition home or self-care (01) ==
LOC: ER 11:15
DX: T40.411A Poisoning by fentanyl or fentanyl analogs, accidental (unintentional), initial encounter (principal); D64.9 Anemia, unspecified; I25.10 Atherosclerotic heart disease of native coronary artery without angina pectoris; Z86.718 Personal history of other venous thrombosis and embolism; F15.90 Other stimulant use, unspecified, uncomplicated; F12.90 Cannabis use, unspecified, uncomplicated; Z88.2 Allergy status to sulfonamides; Y92.410 Unspecified street and highway as the place of occurrence of the external cause; S01.21XA Laceration without foreign body of nose, initial encounter
CPT/HCPCS: 36415; 70450; 71045; 72125; 80048; 80305; 80320; 85025; 96360; 96361; 99285; J7030; J7120